=== PATIENT | female | born 1980 | race African-American/Black ===

== ENCOUNTER 2017-08-22 09:10 | Inpatient (IN) | payer SELFPAY ==
[2017-08-22] MEDS ORDERED: CARBOPROST 250 MCG INJ IM ×2 (10:00→18:00)
[2017-08-22] MEDS ORDERED: IBUPROFEN 600 MG TAB PO (10:00)
[2017-08-22] MEDS ORDERED: OXYTOCIN 30 UNITS/LR 500 ML IV ×3 (10:00→18:00)
[2017-08-22] MEDS ORDERED: METHYLERGONOVINE 0.2 MG INJ IM ×2 (10:00→18:00)
[2017-08-22] MEDS ORDERED: MISOPROSTOL 200 MCG TAB PR ×2 (10:00→18:00)
[2017-08-22] MEDS ORDERED: BUTORPHANOL 2 MG INJ IV (10:00)
[2017-08-22] MEDS ORDERED: LIDOCAINE 1% (MPF) 30 ML INJ INJ (10:00)
[2017-08-22] MEDS: AMPICILLIN 2 GM/NS (PMX) 100 ML IV (10:44)
[2017-08-22] MEDS: LACTATED RINGER'S 1,000 ML IV ×4 (10:44→15:48)
[2017-08-22 10:54] LABS: ADD MAN DIFF? NO
[2017-08-22 10:57] LABS: BASOPHILS % 0.4 % (0.0-2.0); EOSINOPHILS % 0.3 % (0.0-7.0); HEMATOCRIT 41.3 % (37.0-47.0); HEMOGLOBIN 14.4 g/dl (12.0-16.0); LYMPHOCYTES # 1.4 10^3/ul (0.8-2.9); LYMPHOCYTES % 12.9 % (15.0-51.0); MEAN CORPUSCULAR HEMOGLOBIN 31.4 pg (29.0-33.0); MEAN CORPUSCULAR HGB CONC 34.9 g/dl (32.0-37.0); MEAN CORPUSCULAR VOLUME 90.2 fl (82.0-101.0); MEAN PLATELET VOLUME 11.6 fl (7.4-10.4); MONOCYTE # 0.9 10^3/ul (0.3-0.9); MONOCYTES % 8.3 % (0.0-11.0); NEUTROPHIL # 8.2 10^3/ul (1.6-7.5); NEUTROPHILS % 77.1 % (39.0-77.0); PLATELET COUNT 146 10^3/UL (140-415); RED BLOOD COUNT 4.58 10^6/ul (4.20-5.40); RED CELL DISTRIBUTION WIDTH 13.2 % (11.5-14.5)
[2017-08-22 10:57] LABS: WHITE BLOOD COUNT 10.7 10^3/ul (4.8-10.8)
[2017-08-22 11:18] LABS: INR 0.95; PARTIAL THROMBOPLASTIN TIME 29.4 Sec (25.0-35.0); PROTIME 12.8 Sec (11.9-14.9)
[2017-08-22 12:02] LABS: HEPATITIS B SURFACE ANTIGEN NEGATIVE (NEGATIVE)
[2017-08-22 12:20] LABS: HIV 1&2 ANTIBODY NEGATIVE (NEGATIVE)
[2017-08-22] MEDS ORDERED: FENTAnyl 2MCG/ML-ROPIV 0.2% 100 ML (13:16)
[2017-08-22] MEDS ORDERED: NALOXONE (0.4 MG/ML) INJ IV (13:30)
[2017-08-22] MEDS ORDERED: TERBUTALINE 0 ML (13:41)
[2017-08-22] MEDS: AMPICILLIN 1 GM/NS (PMX) 50 ML IV ×2 (13:54→17:30)
[2017-08-22] MEDS: FENTAnyl 2MCG/ML-ROPIV 0.2% 100 ML BAG EPI (16:04)
[2017-08-22] MEDS ORDERED: ONDANSETRON 4 MG INJ (18:25)
[2017-08-22] MEDS: ONDANSETRON 4 MG INJ IV (18:27)
[2017-08-22] MEDS: OXYTOCIN 30 UNITS/LR 500 ML IV ×3 (18:28→22:36)
[2017-08-22] MEDS ORDERED: ONDANSETRON 4 MG INJ IV (18:30)
[2017-08-22] MEDS: IBUPROFEN 600 MG TAB GTB (22:01)
[2017-08-22] MEDS: WITCH HAZEL/GLYCERIN PAD PR (22:01)
[2017-08-22] MEDS: DIBUCAINE 1% 30 GM OINT TOP (22:02)
[2017-08-22] MEDS: BENZOCAINE 20% 56 ML SPRAY TOP (22:02)
[2017-08-22] MEDS: LANOLIN 7 GM TUBE TOP (22:02)
[2017-08-23] MEDS: HYDROCODONE/APAP (5/325) TAB PO ×2 (00:57→11:54)
[2017-08-23] MEDS: IBUPROFEN 600 MG TAB GTB ×3 (06:25→22:23)
[2017-08-23 06:36] LABS: ADD MAN DIFF? NO
[2017-08-23 06:40] LABS: WHITE BLOOD COUNT 15.6 10^3/ul (4.8-10.8)
[2017-08-23 06:40] LABS: BASOPHILS % 0.3 % (0.0-2.0); EOSINOPHILS % 0.1 % (0.0-7.0); HEMATOCRIT 36.6 % (37.0-47.0); HEMOGLOBIN 12.7 g/dl (12.0-16.0); LYMPHOCYTES # 1.1 10^3/ul (0.8-2.9); MEAN CORPUSCULAR HGB CONC 34.7 g/dl (32.0-37.0); MEAN CORPUSCULAR VOLUME 89.3 fl (82.0-101.0); MEAN PLATELET VOLUME 11.8 fl (7.4-10.4); MONOCYTES % 6.4 % (0.0-11.0); NEUTROPHIL # 13.4 10^3/ul (1.6-7.5); NEUTROPHILS % 85.7 % (39.0-77.0); RED CELL DISTRIBUTION WIDTH 13.2 % (11.5-14.5)
[2017-08-23 06:42] LABS: POSITIVE DIFF @See below
[2017-08-23 06:48] LABS: PLATELET COUNT 136 10^3/UL (140-415)
[2017-08-23] MEDS: LACTATED RINGER'S 1,000 ML IV (09:48)
[2017-08-23 22:50] LABS: RAPID PLASMA REAGIN NONREACTIVE (NR)
[2017-08-24] MEDS: IBUPROFEN 600 MG TAB GTB ×2 (05:39→13:29)
== END 2017-08-24 15:20 | disposition home or self-care (01) | DRG 775 ==
LOC: OBT 09:10 → L-D 09:12 → OBT 09:20 → L-D 09:20 → PP1 20:46
PROVIDERS: Obstetrics & Gynecology
PROC: 3E033VJ Introduction of Other Hormone into Peripheral Vein, Percutaneous Approach (ICD-10-PCS; principal; 2017-08-22)
PROC: 10E0XZZ Delivery of Products of Conception, External Approach (ICD-10-PCS; 2017-08-22)
PROC: 0UQGXZZ Repair Vagina, External Approach (ICD-10-PCS; 2017-08-22)
DX: O69.81X0 Labor and delivery complicated by cord around neck, without compression, not applicable or unspecified (principal); O71.4 Obstetric high vaginal laceration alone; Z3A.39 39 weeks gestation of pregnancy; Z37.0 Single live birth
CPT/HCPCS: 62319; 85025; 85610; 85730; 86592; 86703; 86850; 86900; 86901; 87340; 99464